=== PATIENT | male | born 1955 | race Caucasian/White ===

== ENCOUNTER 2018-05-11 09:17 | Emergency (ER) | payer MEDICARE | END 2018-05-11 10:06 | disposition left against medical advice (07) | LOC: ER 09:17 | DX: Z53.21 Procedure and treatment not carried out due to patient leaving prior to being seen by health care provider (principal) ==

== ENCOUNTER 2018-05-11 12:20 | Emergency (ER) | payer MEDICARE ==
[~2018-05-11] VITALS: Ht 160 cm; Wt 73.0 kg
[2018-05-11] MEDS ORDERED: LIDOCAINE HCL/PF 1% 10 MG/ML 5ML VIAL IJ ONE (14:30)
[2018-05-11] MEDS ORDERED: BACITRACIN ZINC OINT UDPKT TOP ONE (14:30)
[2018-05-11 15:40] VITALS: BP 127/74
== END 2018-05-11 15:45 | disposition home or self-care (01) ==
LOC: ER 12:20
DX: S61.022A Laceration with foreign body of left thumb without damage to nail, initial encounter (principal); W26.8XXA Contact with other sharp object(s), not elsewhere classified, initial encounter; Y93.9 Activity, unspecified; Y92.9 Unspecified place or not applicable
CPT/HCPCS: 12002; 99283; J3490

== ENCOUNTER 2018-10-16 13:28 | Emergency (ER) | payer MEDICARE ==
[~2018-10-16] VITALS: Ht 162.6 cm; Wt 73.0 kg
[2018-10-16] MEDS ORDERED: LIDOCAINE HCL/PF 1% 10 MG/ML 5ML VIAL IJ ONE (15:00)
[2018-10-16] MEDS ORDERED: BACITRACIN ZINC OINT UDPKT TOP ONE (15:00)
[2018-10-16] MEDS ORDERED: BACITRACIN 15GM TUBE TOP NR (15:15)
[2018-10-16 15:55] VITALS: BP 119/70
== END 2018-10-16 15:59 | disposition home or self-care (01) ==
LOC: ER 13:28
DX: S61.411A Laceration without foreign body of right hand, initial encounter (principal); F17.210 Nicotine dependence, cigarettes, uncomplicated; W26.8XXA Contact with other sharp object(s), not elsewhere classified, initial encounter; Y93.89 Activity, other specified; Y92.018 Other place in single-family (private) house as the place of occurrence of the external cause
CPT/HCPCS: 12001; 99283; J3490

== ENCOUNTER 2020-07-08 12:56 | Emergency (ER) | payer MEDICARE, MEDICAID ==
[~2020-07-08] VITALS: Ht 165.1 cm; Wt 75.0 kg
[2020-07-08 13:06] VITALS: BP 130/73
[2020-07-08] MEDS ORDERED: LIDOCAINE HCL/PF 1% 10 MG/ML 5ML VIAL IJ ONE (14:45)
[2020-07-08] MEDS ORDERED: BACITRACIN ZINC OINT UDPKT TOP ONE (14:45)
[2020-07-08] MEDS ORDERED: ACET-2708 MT (17:13)
== END 2020-07-08 17:53 | disposition home or self-care (01) ==
LOC: ER 12:56
DX: S61.412A Laceration without foreign body of left hand, initial encounter (principal); W45.8XXA Other foreign body or object entering through skin, initial encounter; Y93.89 Activity, other specified; Y92.89 Other specified places as the place of occurrence of the external cause; Y99.8 Other external cause status
CPT/HCPCS: 12002; 73140; 99283; A4217; J3490; Z7610